=== PATIENT | female | born 1950 | race Caucasian/White ===

== ENCOUNTER 2022-02-07 05:42 | Inpatient (IN) ==
[2022-02-07] MEDS ORDERED: VANCOMYCIN INJ 1,000 MG in SODIUM CHLORIDE 0.9% 250 ML IV ONE (06:00)
[2022-02-07 07:02] LABS: PT Patient Result 10.8 SECS (10.1-12.1); Partial Thromboplastin Time 26.3 SECS (23.7-32.9)
[2022-02-07] MEDS ORDERED: DIAZEPAM 5 MG TABLET PO ONE (07:54)
[2022-02-07] MEDS ORDERED: GABAPENTIN 400 MG CAPSULE PO ONE (07:54)
[2022-02-07] MEDS ORDERED: FAMOTIDINE 20 MG TABLET PO ONE (07:54)
[2022-02-07] MEDS ORDERED: ACETAMINOPHEN 500 MG TABLET PO ONE (07:54)
[2022-02-07] MEDS ORDERED: LACTATED RINGERS 1,000 ML IV SCH (08:00)
[2022-02-07] MEDS ORDERED: fentaNYL 100 MCG/2 ML VIAL ONE (08:22)
[2022-02-07] MEDS ORDERED: MIDAZOLAM 2 MG/2 ML VIAL ONE (08:22)
[2022-02-07] MEDS ORDERED: LIDOCAINE 2% 5 ML VIAL ONE (08:49)
[2022-02-07] MEDS ORDERED: TRANEXAMIC ACID 1,000 MG/10 ML VIAL ONE (08:49)
[2022-02-07] MEDS ORDERED: propofoL 200 MG/20 ML VIAL IV ONE (08:49)
[2022-02-07] MEDS ORDERED: BUPIVACAINE SPINAL 0.75% 2 ML AMP SPINAL ONE (08:54)
[2022-02-07] MEDS ORDERED: buprenorphine HCL 0.3 MG/ML VIAL ONE (08:55)
[2022-02-07] MEDS ORDERED: DEXAMETHASONE 4 MG/1 ML VIAL ONE (08:56)
[2022-02-07] MEDS ORDERED: ROPIVACAINE 0.5% 30 ML VIAL ONE (08:57)
[2022-02-07] MEDS ORDERED: LIDOCAINE 1% 5 ML VIAL ONE (08:57)
[2022-02-07] MEDS ORDERED: MORPHINE 2 MG/1 ML SYRINGE IV PRN ×2 (10:29→10:42)
[2022-02-07] MEDS ORDERED: BISACODYL 10 MG SUPP RECTAL PRN (10:29)
[2022-02-07] MEDS ORDERED: PROMETHAZINE 25 MG/1 ML VIAL IM PRN (10:29)
[2022-02-07] MEDS ORDERED: MAGNESIUM HYDROXIDE SUSP 30 ML UDCUP PO PRN (10:29)
[2022-02-07] MEDS ORDERED: LACTULOSE 20 GM/30 ML UDCUP PO PRN (10:29)
[2022-02-07] MEDS ORDERED: ONDANSETRON 4 MG/2 ML VIAL IV PRN (10:29)
[2022-02-07] MEDS ORDERED: diphenhydrAMINE CAP 25 MG CAPSULE PO PRN (10:29)
[2022-02-07] MEDS ORDERED: TEMAZEPAM 7.5 MG CAPSULE PO PRN (10:29)
[2022-02-07] MEDS ORDERED: PHENYLEPHRINE 1 MG/10 ML SYRINGE IV ONE (10:40)
[2022-02-07] MEDS ORDERED: ONDANSETRON 4 MG/2 ML VIAL ONE (10:57)
[2022-02-07] MEDS: CITALOPRAM 20 MG TABLET PO SCH (20:21)
[2022-02-07] MEDS: DOCUSATE SODIUM 100 MG CAPSULE PO SCH (20:21)
[2022-02-08] MEDS: FONDAPARINUX 2.5 MG/0.5 ML SYRINGE SUBCUT SCH (05:07)
[2022-02-08 05:56] LABS: Basophils % 0.1 % (0.0-0.8); Eosinophils % 0.1 % (0.00-10.9); Hematocrit 33.8 VOL% (35.7-47.0); Hemoglobin 10.8 GM/DL (12.0-16.0); Immature Granulocytes % 0.4 %; Immature Granulocytes Absolute 0.04 #; Lymphocytes # 1.4 10*3/uL (1.4-4.0); Lymphocytes % 14.1 % (21.3-54.2); Mean Corpuscular Volume 93.4 FL (87-102); Mean Platelet Volume 9.1 FL (9.6-12.0); Monocytes # 0.9 10*3/uL (0.11-0.8); Monocytes % 8.9 % (1.7-12.7); Neutrophils % 76.4 % (38.7-73.9); Platelet Count 238 T/CUMM (130-400); Red Blood Count 3.62 MC/CUMM (3.8-5.5); Red Cell Distribution Width 13.3 % (9.3-17.3); White Blood Count 9.6 T/CUMM (4-12)
[2022-02-08 06:18] LABS: Calcium 9.2 MG/DL (8.5-10.1); Osmolality,Calculated 275.7 MOS/KG (273-304); Potassium 4.5 MMOL/L (3.5-5.1)
[2022-02-08] MEDS: PANTOPRAZOLE 40 MG TABLET PO SCH (09:23)
[2022-02-08] MEDS: DOCUSATE SODIUM 100 MG CAPSULE PO SCH ×2 (09:23→21:01)
[2022-02-08] MEDS: CETIRIZINE 10 MG TABLET PO SCH (09:23)
[2022-02-08] MEDS: TRIAMTERENE/HCTZ 37.5-25 MG TABLET PO SCH (09:23)
[2022-02-08] MEDS ORDERED: ACETAMINOPHEN 325 MG TABLET PO PRN (10:32)
[2022-02-08] MEDS: CITALOPRAM 20 MG TABLET PO SCH (21:01)
[2022-02-09] MEDS: FONDAPARINUX 2.5 MG/0.5 ML SYRINGE SUBCUT SCH (05:24)
[2022-02-09] MEDS: TRIAMTERENE/HCTZ 37.5-25 MG TABLET PO SCH (08:52)
[2022-02-09] MEDS: CETIRIZINE 10 MG TABLET PO SCH (08:52)
[2022-02-09] MEDS: DOCUSATE SODIUM 100 MG CAPSULE PO SCH ×2 (08:52→21:24)
[2022-02-09] MEDS: PANTOPRAZOLE 40 MG TABLET PO SCH (08:52)
[2022-02-09] MEDS: CITALOPRAM 20 MG TABLET PO SCH (21:23)
[2022-02-10] MEDS: FONDAPARINUX 2.5 MG/0.5 ML SYRINGE SUBCUT SCH (06:30)
[2022-02-10] MEDS: TRIAMTERENE/HCTZ 37.5-25 MG TABLET PO SCH (08:55)
[2022-02-10] MEDS: DOCUSATE SODIUM 100 MG CAPSULE PO SCH (08:56)
[2022-02-10] MEDS: CETIRIZINE 10 MG TABLET PO SCH (08:56)
[2022-02-10] MEDS: PANTOPRAZOLE 40 MG TABLET PO SCH (08:56)
[2022-02-10] MEDS ORDERED: CIPROFLOXACIN 500 MG TABLET PO SCH (09:00)
[2022-02-10 09:35] LABS: Glucose,Urine (UA) Negative (Negative); Ketones,Urine 40 mg/dL (Negative); Mucus,Urine Many /LPF (Occasional); Nitrite,Urine Positive (Negative); Protein,Urine >=300 mg/dL (Negative); RBC,Urine 659 /HPF (0-4); Urine Appearance Cloudy (Clear); Urine Color Red (Yellow); Urine Specific Gravity 1.025 (1.001-1.035)
[2022-02-10 09:36] LABS: Bilirubin,Urine Moderate mg/dL (Negative); Blood, Urine Large mg/dL (Negative)
[2022-02-10 11:16] VITALS: BP 121/61
== END 2022-02-10 11:50 | disposition swing bed (61) | DRG 470 ==
LOC: N.OR 05:42 → N.SDSINP 05:43 → N.3E 13:42
PROVIDERS: ADMIT Orthopaedic Surgery; ATTEND Orthopaedic Surgery